=== PATIENT | male | born 1970 | race Caucasian/White ===

== ENCOUNTER 2020-02-18 03:45 | Emergency (ER) | payer SELFPAY ==
[~2020-02-18] VITALS: Ht 180.3 cm; Wt 108.9 kg
--- NOTE | 2020-02-18 03:45 | NUR ---
ROLANDO BOWLES, PRE-BOOK. TAKEN TO CHAIR
[2020-02-18 03:48] VITALS: BP 143/96
--- NOTE | 2020-02-18 04:05 | NUR ---
Dr. Young examining patient.
[2020-02-18] MEDS ORDERED: KETOROLAC 60 MG/2 ML VIAL IM ONE (04:10)
[2020-02-18 04:24] VITALS: BP 143/96
--- NOTE | 2020-02-18 04:24 | NUR ---
Patient discharged with v/s stable. Written and verbal after care instructions given and explained. Patient verbalized understanding. Police with in custody. All questions addressed prior to discharge. Advised to follow up with PMD.
== END 2020-02-18 04:24 ==
LOC: MED 03:45
DX: M79.604 Pain in right leg (principal); I10 Essential (primary) hypertension; F17.200 Nicotine dependence, unspecified, uncomplicated; Z98.890 Other specified postprocedural states
CPT/HCPCS: 96372; 99283; J1885

== ENCOUNTER 2023-02-08 11:29 | Emergency (ER) | payer MEDICAID ==
[~2023-02-08] VITALS: Ht 175.3 cm; Wt 95.3 kg
[2023-02-08 11:45] VITALS: BP 168/101; PULSE 102; RESP 17; TEMP 97.4; O2SAT 97
[2023-02-08 12:01] VITALS: BP 144/99; PULSE 98; RESP 17; TEMP 97.4; O2SAT 97
== END 2023-02-08 12:01 ==
LOC: MED 11:29
DX: M21.371 Foot drop, right foot (principal); I10 Essential (primary) hypertension
CPT/HCPCS: 99283